=== PATIENT | female | born 1990 ===

== ENCOUNTER 2017-07-05 09:14 | Outpatient (CLI) | payer OTHER ==
[~2017-07-05 09:14] MED LIST: FOLIC ACID1 MG; METHOCARBAMOL500 MG PO; PRENATAL CAPSU1 EACH; SYNTHROID50 MCG
== END 2017-07-05 09:26 | disposition home or self-care (01) ==
LOC: SONOGRAMA 09:14
DX: E04.1 Nontoxic single thyroid nodule (principal)

== ENCOUNTER 2018-09-12 14:57 | Emergency (ER) | payer OTHER ==
[~2018-09-12] VITALS: Ht 154.9 cm; Wt 85.7 kg
== END 2018-09-12 17:10 | disposition home or self-care (01) ==
LOC: ER 14:57
DX: T78.1XXA Other adverse food reactions, not elsewhere classified, initial encounter (principal); R06.02 Shortness of breath

== ENCOUNTER 2018-09-17 08:27 | Outpatient (CLI) | payer OTHER | END 2018-09-17 08:48 | disposition home or self-care (01) | LOC: SONOGRAMA 08:27 | DX: E03.8 Other specified hypothyroidism (principal); R10.84 Generalized abdominal pain ==

== ENCOUNTER 2020-07-18 12:32 | Outpatient (CLI) | payer OTHER | END 2020-07-18 12:40 | disposition home or self-care (01) | LOC: SONOGRAMA 12:32 → MAMO-SONO 13:45 | PROVIDERS: ATTEND Obstetrics & Gynecology | DX: M79.12 Myalgia of auxiliary muscles, head and neck (principal); E03.8 Other specified hypothyroidism ==

== ENCOUNTER 2020-10-05 08:20 | Emergency (ER) | payer OTHER ==
[~2020-10-05] VITALS: Ht 154.9 cm; Wt 81.6 kg
== END 2020-10-05 14:53 | disposition home or self-care (01) ==
LOC: ER 08:20
DX: J06.9 Acute upper respiratory infection, unspecified (principal)

== ENCOUNTER → 2020-10-06 | Outpatient (CLI) | payer OTHER | END | disposition home or self-care (01) | LOC: PRENATAL 14:47 | PROVIDERS: ATTEND Obstetrics & Gynecology Maternal & Fetal Medicine | DX: O35.0XX1 Maternal care for (suspected) central nervous system malformation in fetus, fetus 1 (principal); O35.3XX1 Maternal care for (suspected) damage to fetus from viral disease in mother, fetus 1; O98.512 Other viral diseases complicating pregnancy, second trimester; Z36.89 Encounter for other specified antenatal screening; Z3A.25 25 weeks gestation of pregnancy ==